=== PATIENT | male | born 1940 ===

== ENCOUNTER → 2023-11-29 13:20 | Outpatient (BNVA) | payer MEDICARE, BC, SELFPAY | PROVIDERS: Family Provider Family Medicine; PCP Family Medicine; Visit Provider Dermatology | DX: L28.1 Prurigo nodularis (principal); D48.5 Neoplasm of uncertain behavior of skin; L57.0 Actinic keratosis; L81.8 Other specified disorders of pigmentation; L30.0 Nummular dermatitis; L82.1 Other seborrheic keratosis; L85.3 Xerosis cutis | CPT/HCPCS: 11104; 17000; 99204 ==

== ENCOUNTER → 2023-12-09 12:43 | Outpatient (BNVA) | payer MEDICARE, BC, SELFPAY | PROVIDERS: Family Provider Family Medicine; PCP Family Medicine; Visit Provider Dermatology | DX: Z48.02 Encounter for removal of sutures (principal) | CPT/HCPCS: 99212 ==

== ENCOUNTER → 2024-01-04 13:23 | Outpatient (BNVA) | payer MEDICARE, BC, SELFPAY | PROVIDERS: Family Provider Family Medicine; PCP Family Medicine; Visit Provider Dermatology | DX: L29.8 Other pruritus (principal); L82.0 Inflamed seborrheic keratosis; R53.83 Other fatigue; D17.0 Benign lipomatous neoplasm of skin and subcutaneous tissue of head, face and neck | CPT/HCPCS: 17110; 99214 ==

== ENCOUNTER 2024-01-11 14:04 | Outpatient (CLI) | payer BC, MEDICARE, SELFPAY ==
--- NOTE | 2024-01-11 14:13 | XRR_ITS ---
PROCEDURE INFORMATION: Exam: XR Chest Exam date and time: 01/11/2024 2:43 PM Age: 83 years old Clinical indication: Condition or disease; Other: Other pruritus; Patient HX: Chronic random itchiness TECHNIQUE: Imaging protocol: Radiologic exam of the chest. Views: 2 views. COMPARISON: No relevant prior studies available. FINDINGS: Lungs: Calcified granulomas in the lungs. Irregular nodular opacity projecting in the medial right upper lung measuring nearly 2 cm may be superimposition of normal osseous and vascular structures, but could be a pulmonary nodule. Otherwise, unremarkable. Pleural spaces: Unremarkable. No pleural effusion. No pneumothorax. Heart/Mediastinum: Unremarkable. No cardiomegaly. Bones/joints: Mild scoliosis with multilevel spondylosis ranging from mild to severe. Partial thoracic spine ankylosis. Otherwise, unremarkable. XR/XR chest 2V* [id number] IMPRESSION: 1. Possible 2 cm irregular nodule in the right upper lung. This can be further evaluated with CT of the chest. 2. No other acute findings.
[2024-01-11 14:53] LABS: Basophils # 0.1 10^3/uL (0.0-0.1); Basophils % 0.8 %; Eosinophils # 0.3 10^3/uL (0.0-0.8); Hematocrit 39.6 % (37-53); Lymphocytes # 1.3 10^3/uL (0.8-4.8); Lymphocytes % 20.8 %; Mean Corpuscular HGB Conc 34.6 g/dL (30-55); Mean Corpuscular Hemoglobin 29.5 pg (27-33); Mean Corpuscular Volume 85.3 fl (82-101); Mean Platelet Volume 9.4 fL (7.4-10.4); Monocytes # 0.6 10^3/uL (0.2-0.9); Monocytes % 10.4 %; Neutrophils # 3.85 10^3/uL (1.8-7.7); Neutrophils % 62.7 %; Nucleated Red Blood Cells % 0 %; Platelet Count 202 10^3/cmm (157-399); Red Blood Count 4.64 10^6/uL (3.85-5.65); Red Cell Distribution Width 13.4 % (12.1-15.1); White Blood Count 6.15 10^3/uL (3.29-11.43)
[2024-01-11 15:28] LABS: Anion Gap 15.1 (5-19); Blood Urea Nitrogen 17 mg/dL (8-23); Calcium 9.1 mg/dL (8.5-10.5); Carbon Dioxide 23 mmol/L (22-29); Chloride 105 mmol/L (98-107); Free T4 Free Thyroxine 1.08 ng/dL (0.82-1.77); Glucose 119 mg/dL (65-115); Osmolality Calculated 291 mOsm/kg (285-295); Potassium 4.1 mmol/L (3.5-5.1); Sodium 139 mmol/L (136-145); Thyroid Stimulating Hormone 3.96 uIU/mL (0.27-4.20)
[2024-01-11 15:33] LABS: Hepatitis A Antibody IgM Non-Reactive (Nonreactive); Hepatitis B Core AB, Total Non-Reactive (Nonreactive); Hepatitis B Surface AB < 3.5 (11.5-1000); Hepatitis B Surface Antigen Non-Reactive (Nonreactive); Hepatitis C Virus Antibody Non-Reactive (Nonreactive)
== END 2024-01-11 14:05 | disposition home or self-care (01) ==
LOC: LAB 14:09
PROVIDERS: Family Provider Family Medicine; PCP Family Medicine; Visit Provider Dermatology
DX: L29.8 Other pruritus (principal); L82.0 Inflamed seborrheic keratosis; R20.8 Other disturbances of skin sensation; L53.8 Other specified erythematous conditions; R53.83 Other fatigue
CPT/HCPCS: 36415; 71046; 80048; 84439; 84443; 85025; 86705; 86706; 86709; 86803; 87340

== ENCOUNTER 2025-01-01 11:58 | Day surgery (SDC) | payer MEDICARE, BC, SELFPAY ==
[2025-01-01] VITALS (9 sets, daily range): BP systolic 144–186; BP diastolic 71–106; PULSE 70–80; RESP 18–20; TEMP 36.1–36.7; O2SAT 94–100; BMI 30.4
--- NOTE | 2025-01-01 12:22 | XR_ITS ---
WS: [id number] XR chest 1V portable [id number] REASON FOR EXAM: Dysphagia FINDINGS: The chest is unchanged compared to 01/11/2024. There is moderate tortuosity and ectasia of the thoracic aorta. No mediastinal mass or pneumomediastinum. The heart is at the upper limits of normal in size. Calcified granulomas disease bilaterally. No acute pulmonary parenchymal or pleural abnormality. Moderate degenerative spondylosis in the thoracic spine. XR/XR chest 1V portable [id number] IMPRESSION: Stable chest with no acute abnormality.
[2025-01-01 12:38] LABS: Basophils # 0.1 10^3/uL (0.0-0.1); Basophils % 0.6 %; Eosinophils # 0.3 10^3/uL (0.0-0.8); Eosinophils % 2.8 %; Hematocrit 42.3 % (37-53); Lymphocytes # 1.5 10^3/uL (0.8-4.8); Lymphocytes % 16.2 %; Mean Corpuscular HGB Conc 34.8 g/dL (30-55); Mean Corpuscular Hemoglobin 29.7 pg (27-33); Mean Corpuscular Volume 85.5 fl (82-101); Mean Platelet Volume 8.9 fL (7.4-10.4); Monocytes # 0.8 10^3/uL (0.2-0.9); Monocytes % 8.7 %; Neutrophils # 6.59 10^3/uL (1.8-7.7); Neutrophils % 71.4 %; Nucleated Red Blood Cells % 0 %; Platelet Count 208 10^3/cmm (157-399); Red Blood Count 4.95 10^6/uL (3.85-5.65); Red Cell Distribution Width 13.5 % (12.1-15.1); White Blood Count 9.24 10^3/uL (3.29-11.43)
[2025-01-01 12:57] LABS: Alanine Aminotransferase 16 U/L (0-41); Albumin Level 4.3 g/dL (3.5-5.2); Alkaline Phosphatase 119 U/L (40-130); Anion Gap 16.1 (5-19); Aspartate Amino Transferase 17 U/L (0-40); Blood Urea Nitrogen 14 mg/dL (8-23); Calcium 9.1 mg/dL (8.5-10.5); Carbon Dioxide 25 mmol/L (22-29); Chloride 103 mmol/L (98-107); Creatinine Clr Calc Pharmacy 69.2126; Globulin 2.7 g/dL (1.3-4.6); Glucose 101 mg/dL (65-115); Osmolality Calculated 291 mOsm/kg (285-295); Potassium 4.1 mmol/L (3.5-5.1); Sodium 140 mmol/L (136-145); Total Bilirubin 0.4 mg/dL (0.15-1.2)
--- NOTE | 2025-01-01 13:13 | ED_ITS ---
HPI - Abdominal Pain 2 General: Chief Complaint: Abdominal Pain Stated Complaint: having trouble swallowing Time Seen by Provider: 01/01/25 12:21 History of Present Illness: 84-year-old male presents to the emergen cy room with complaints of difficulty swallowing and cannot swallow saliva since morning after he ate several pieces of bread for breakfast. Patient does have fairly significant dementia his daughter is here with him provides some history there is no report of hematemesis or coffee-ground emesis. Patient is awake and alert at his typical baseline. Associated Symptoms: Denies chills, dysuria and fever(s) Related Data Home Medications ?Medication ?Instructions ?Recorded ?Confirmed amlodipine 5 mg-benazepril 10 mg 1 cap PO DAILY 01/01/25 capsule diphenhydramine HCl 25 mg capsule 75 mg PO QPM PRN Itc konstantin 01/01/25 01/01/25 (Benadryl) memantine 5 mg tablet 5 mg PO DAILY 01/01/2501/01 Previous Rx's ?Medication ?Instructions ?Recorded metoclopramide HCl 5 mg tablet 5 mg PO DAILY #30 tabs 01/01/25 pantoprazole 40 mg tablet,delayed 40 mg PO QAM #30 tab s 01/01/25 release sucralfate 100 mg/mL oral 1 g (10 mL) PO BID 2 weeks # 280 mL 01/01/25 suspension Allergies Allergy/AdvReac Type Severity Reaction Status Date / Time No Known Allergies Allergy Verified 01/01/25 12:11 Review of Systems 2 Const: Denies: fever(s) or chills Card: Denies: chest pain Resp: Denies: dyspnea GI: Denies: abdominal pain : Denies: dysuria, urinary frequency or urinary urgency Musc: Denies: neck pain or back pain Skin/Breast: Denies: rash PFSH ED 2 PFSH: Social History Smoking and tobacco/nicotine status: never used tobacco/nicotine Physical Exam 2 Const: COMMON NORMALS: no acute distress GENERAL APPEARANCE: cooperative and comfortable ORIENTATION/CONSCIOUSNESS: Yes awake and Yes oriented to person HENMT: COMMON NORMALS: normocephalic, atraumatic and hearing grossly normal bilaterally HEAD & SCALP: normocephalic and atraumatic Resp: COMMON NORMALS: normal respiratory effort, No retractions, No use of accessory muscles and clear to auscultation bilaterally AUSCULTATION: clear to auscultation bilaterally Cardio: COMMON NORMALS: regular rate, regular rhythm and No murmurs present (Cardio) RATE: regular rate RHYTHM: regular rhythm GI: COMMON NORMALS: Soft to palpation and No hepatosplenomegaly present A USCULTATION: Yes normoactive bowel sounds PALPATION: Yes Soft to palpation, No Tenderness to palpation present (GI), No Guarding due to palpation present (GI) and Yes No hepatosplenomegaly present Extremity: COMMON NORMALS: normal to inspection, capillary refill normal, no clubbing, cyanosis or edema, no calf tenderness and no pedal edema Neuro: SENSORIUM/ORIENTATION: Yes oriented to person Skin: COMMON NORMALS: no rashes or lesions noted GENERAL SKIN EXAM: no rashes or lesions noted Course 2 Vital Signs: Vital signs: Vital Signs Temperature 97.6 F 01/01/25 15:15 Pulse Rate 80 01/01/25 15:15 Respiratory Rate 18 01/01/25 15:15 Blood Pressure 164/71 01/01/25 15:15 Pulse Oximetry 96 01/01/25 15:15 Oxygen Delivery Me thod Room Air 01/01/25 15:15 MDM - Abdominal Pain Medical Decision Making Esophageal food impaction discussed with surgery they have taken patient from the ER to GI lab for EGD for relief of the impaction. Reviewed case with Dr. Machuca. Medical Records I reviewed the patient's medical records. Lab Data I reviewed the patient's lab results. 01/01/25 12:30 01/01/25 12:30 Labs/Radiology: Radiology Impressions Chest X-Ray 01/01/25 12:22 IMPRESSION: Stable chest with no acute abnormality. Laboratory Results WBC 9.24 10^3/uL (3.29-11.43) 01/01/25 12:30 RBC 4.95 10^6/uL (3.85-5.65) 01/01/25 12:30 Hgb 14.70 g/dL (11.27-16.99) 01/01/25 12:30 Hct 42.3 % (37-53) 01/01/25 12:30 MCV 85.5 fl (82-101) 01/01/25 12:30 MCH 29.7 pg (27-33) 01/01/25 12:30 MCHC 34.8 g/dL (30-55) 01/01/25 12:30 RDW 13.5 % (12.1-15.1) 01/01/25 12:30 Plt Count 208 10^3/cmm (157-399) 01/01/25 12:30 MPV 8.9 fL (7.4-10.4) 01/01/25 12:30 Neut % (Auto) 71.4 % 01/01/25 12:30 Lymph % (Auto) 16.2 % 01/01/25 12:30 [place] % (Auto) 8.7 % 01/01/25 12:30 Eos % (Auto) 2.8 % 01/01/25 12:30 Baso % (Auto) 0.6 % 01/01/25 12: Neut # (Auto) 6.59 10^3/uL (1.8-7.7) 01/01/25 12:30 Lymph # (Auto) 1.5 10^3/uL (0.8-4.8) 01/01/25 12:30 [place] # (Auto) 0.8 10^3/uL (0.2-0.9) 01/01/25 12:30 Eos # (Auto) 0.3 10^3/uL (0.0-0.8) 01/01/25 12:30 Baso # (Auto) 0.1 10^3/uL (0.0-0.1) 01/01/25 12:30 Nucleated RBC % (auto) 0 % 01/01/25 12: Nucleated RBCs # 0.0 /100WBC 01/01/25 12:30 Sodium 140 mmol/L (136-145) 01/01/25 12:30 Potassium 4.1 mmol/L (3.5-5.1) 01/01/25 12:30 Chloride 103 mmol/L (98-107) 01/01/25 12:30 Carbon Dioxide 25 mmol/L (22-29) 01/01/25 12:30 Anion Gap 16.1 (5-19) 01/01/25 12:30 BUN 14 mg/dL (8-23) 01/01/25 12:30 Creatinine 0.9 mg/dL (0.7-1.2) 01/01/25 12:30 GFR Calculation Not Reportable 01/01/25 12:30 Glucose 101 mg/dL (65-115) 01/01/25 12:30 Calculated Osmolality 291 mOsm/kg (285-295) 01/01/25 12:30 Calcium 9.1 mg/dL (8.5-10.5) 01/01/25 12:30 Total Bilirubin 0.4 mg/dL (0.15-1.2) 01/01/25 12:30 AST 17 U/L (0-40) 01/01/25 12:30 ALT 16 U/L (0-41) 01/01/25 12:30 Alkaline Phosphatase 119 U/L (40-130) 01/01/25 12:30 Total Protein 7.0 g/dL (6.6-8.7) 01/01/25 12:30 Albumin 4.3 g/dL (3.5-5.2) 01/01/25 12:30 Globulin 2.7 g/dL (1.3-4.6) 01/01/25 12:30 All radiology interpretation(s) finalized by discharge Discharge Plan Discharge Patient Disposition: Placed in Observation Clinical Impression: Esophageal foreign body Condition: Stable Discharge Orders: Discharge Order (Routine); Ordered 01/01/25 Ordered By: Adam Machuca Discharge Diet: Full LIquid Discharge Activity: Resume usual activity Coding Level of Care Code ED Barrel Inspector Tight for Corry Moore
[2025-01-01] MEDS: glucagon 1 mg/mL KIT 1 mL SUBCUT (13:25)
--- NOTE | 2025-01-01 13:52 | P.HP_ITS ---
Providers/Chief Complaint 2 Primary Care Provider: Marcel Hilario Chief Complaint: having trouble swallowing History of Present Illness Primo Rivera is a 84 year old male Who presents with a possible food bolus impaction. He swallow bread and milk this morning after that he has been choking has been able to tolerate saliva but it comes back immediately. Has happened in the past and about 10 years ago he had a esophageal dilation. Review of Systems 2 General: Reports: 10 or more systems reviewed and unremarkable except in HPI and below Medications/Allergies Home Medications ?Medication ?Instructions ?Recorded ?Confirmed ?Last Taken ?Type amlodipine 5 mg-benazepril 10 mg 1 cap PO DAILY 01/01/25 12/31/24 History capsule diphenhydramine HCl 25 mg capsule 75 mg PO QPM PRN Itc konstantin 01/01/25 01/01/25 12/31/24 History (Benadryl) memantine 5 mg tablet 5 mg PO DAILY 01/01/2501/0112/31/24 History Allergies Allergy/AdvReac Type Severity Reaction Status Date / Time No Known Allergies Allergy Verified 01/01/25 12:11 PFSH Acute 2 PFSH: Social History Smoking and tobacco/nicotine status: never used tobacco/nicotine Vitals/I&O/Wt Last Vital Signs Temp 98.0 F 01/01/25 12:04 Pulse 71 01/01/25 12:04 Resp 18 01/01/25 12:04 BP 144/106 01/01/25 12:04 Pulse Ox 99 01/01/25 12:04 O2 Del Method Room Air 01/01/25 12:04 Weight last 48 hrs Weight 200 lb Physical Exam 2 Narrative: Alert and oriented, persistent coughing and throat clearing. No significant abdominal pain. Data 01/01/25 12:30 01/01/25 12:30 A&P Assessment and plan (1) Esophageal foreign body: Plan Patient has dementia and daughter has power of insurance attorney. After discussion with the daughter we decided to proceed with a patient to the endoscopy suite to remove the foreign body from the esophagus. I discussed all recent benefits of the procedure including the increased risk of perforation due to history of previous esophageal stricture as well as food bolus for since this morning. POA shows understandingAnd agrees to proceed. PDMP PDMP Reviewed: Not Reviewed Attestations 2 Medical Necessity Statement*: Patient will be discharged after food bolus is removed Coding Level of Care Code Acute Code for Chg Fwd Diagnoses Esophageal foreign body T18.108A
--- NOTE | 2025-01-01 14:10 | ANES.PREANE2 ---
Pre-Anesthetic Assessment Height/Weight: Height 1.73 m Weight 90.718 kg Temp Pulse Resp BP Pulse Ox O2 Del Method 98.0 F 71 18 144/106 99 Room Air 01/01/25 12:04 01/01/25 12:04 01/01/25 12:04 01/01/25 12:04 01/01/25 12:04 01/01/25 12:04 Operation Date: 01/01/25 14:00 Proposed Procedures p EGD(Not Applicable) - Adam Machuca MD Familial anesthetic complications: none Was Beta Fermin taken within 24 hours: N/A Was Clonidine taken within 24 hours: N/A Last intake: Food bolus Social Tobacco and No alcohol Exam alert, oriented x 3, clear to auscultation bilaterally and regular rate & rhythm Airway Dentition: false Neuropsych Dementia Anesthetic Plan ASA status: 2 Anesthesia: General Risk of > 500 ml blood loss (7ml/kg in children): No Medications/Allergies Home Medications ?Medication ?Instructions ?Recorded ?Confirmed ?Last Taken ?Type amlodipine 5 mg-benazepril 10 mg 1 cap PO DAILY 01/01/25 01/01/25 12/31/24 History capsule diphenhydramine HCl 25 mg capsule 75 mg PO QPM PRN Itching 01/01/25 01/01/25 12/31/24 History (Benadryl) memantine 5 mg tablet 5 mg PO DAILY 01/01/25 01/01/25 12/31/24 History Allergies Allergy/AdvReac Type Severity Reaction Status Date / Time No Known Allergies Allergy Verified 01/01/25 12:11 [facility] Anesthesia Social History Smoking and tobacco/nicotine status: never used tobacco/nicotine Data Anesthesia 01/01/25 12:30 01/01/25 12:30 Short CBC 01/01/25 Range/Units 12:30 WBC 9.24 (3.29-11.43) 10^3/uL Hgb 14.70 (11.27-16.99) g/dL Hct 42.3 (37-53) % MCV 85.5 (82-101) fl Plt Count 208 (157-399) 10^3/cmm Neut % (Auto) 71.4 % Neut # (Auto) 6.59 (1.8-7.7) 10^3/uL BMP 03/31/25 12:30 Sodium 140 Potassium 4.1 Chloride 103 Carbon Dioxide 25 BUN 14 Creatinine 0.9 Glucose 101 Calcium 9.1 Liver Function 01/01/25 Range/Units 12:30 Total Bilirubin 0.4 (0.15-1.2) mg/dL AST 17 (0-40) U/L ALT 16 (0-41) U/L Alkaline Phosphatase 119 (40-130) U/L Albumin 4.3 (3.5-5.2) g/dL Cardiac Studies: No Data to Display
--- NOTE | 2025-01-01 15:36 | ANE.PACU2 ---
Inpatient post-anesthesia follow up: Airway intact: Yes Vital signs: Temperature 97.6 F Pulse Rate 80 Respiratory Rate 18 Blood Pressure 164/71 Pulse Oximetry 96 Oxygen Delivery Me thod Room Air Oxygen Flow Rate Fraction of Inspir ed Oxygen Hydration adequate: Yes Nausea and vomiting: No Pain level: 1 Mental status: Baseline Additional Comments: patient and family educated to watch for any signs of developing pneumonia like fever, sob, cough and to go to ER or see PCP if develops
== END 2025-01-01 15:33 | disposition home or self-care (01) ==
LOC: ER 13:42 → OR 13:51
PROVIDERS: Emergency Provider Family Medicine; PCP Family Medicine; Visit Provider Surgery
PROC: 0DJ08ZZ Inspection of Upper Intestinal Tract, Via Natural or Artificial Opening Endoscopic (ICD-10-PCS; principal; 2025-01-01 14:00)
DX: T18.128A Food in esophagus causing other injury, initial encounter (principal); K26.9 Duodenal ulcer, unspecified as acute or chronic, without hemorrhage or perforation; B96.81 Helicobacter pylori [H. pylori] as the cause of diseases classified elsewhere; K44.9 Diaphragmatic hernia without obstruction or gangrene; W44.F3XA Food entering into or through a natural orifice, initial encounter; K29.80 Duodenitis without bleeding; K29.50 Unspecified chronic gastritis without bleeding; K29.00 Acute gastritis without bleeding; F03.90 Unspecified dementia, unspecified severity, without behavioral disturbance, psychotic disturbance, mood disturbance, and anxiety; Z79.899 Other long term (current) drug therapy
CPT/HCPCS: 36415; 43239; 71045; 80053; 85025; 88305; 96372; 99285; J0330; J1100; J1610; J2405; J2704; J9999